=== PATIENT | female | born 1995 | race Asian ===

== ENCOUNTER 2018-06-14 02:51 | Emergency (ER) | payer SELFPAY ==
[~2018-06-14] VITALS: Ht 162.6 cm; Wt 59.0 kg
[2018-06-14 03:05] VITALS: Ht 162.6 cm; Wt 59.0 kg
[2018-06-14 03:25] LABS: BASOPHIL % 1.9 % (0-2); PLATELET COUNT 287 x10^3mcL (130-400); RED CELL DISTRIBUTION WIDTH 13.4 % (11.5-14.5)
[2018-06-14 03:42] LABS: CALCIUM 8.9 mg/dL (8.5-10.1); CARBON DIOXIDE 26.4 mmol/L (21-32); CHLORIDE SERUM 99 mmol/L (98-107); CREATININE SERUM 0.6 mg/dL (0.6-1.0); GFR1 > 60 mL/min; GLUCOSE SERUM 106 mg/dL (74-106); POTASSIUM SERUM 3.3 mmol/L (3.5-5.1); SODIUM SERUM 138 mmol/L (136-145)
[2018-06-14 03:47] LABS: ALKALINE PHOSPHATASE 69 U/L (46-116); ALT/SGPT 25 U/L (14-59); AST/SGOT 24 U/L (15-37); BILIRUBIN TOTAL 0.2 mg/dL (0.20-1.00); TOTAL PROTEIN, SERUM 7.9 g/dL (6.4-8.2)
[2018-06-14 04:07] LABS: AMPHETAMINE QUAL UR NONE DETECTED (See below)
[2018-06-14 07:58] VITALS: BP 130/69
== END 2018-06-14 07:58 | disposition home or self-care (01) ==
LOC: ED 02:51
PROVIDERS: Emergency Medicine
DX: Z00.8 Encounter for other general examination (principal); W17.89XA Other fall from one level to another, initial encounter; Y93.89 Activity, other specified; Y92.89 Other specified places as the place of occurrence of the external cause; Y99.8 Other external cause status
CPT/HCPCS: 36415; G0480

== ENCOUNTER 2020-03-16 01:48 | Emergency (ER) | payer OTHER ==
[~2020-03-16] VITALS: Ht 162.6 cm; Wt 62.7 kg
[2020-03-16 01:57] VITALS: Ht 162.6 cm; Wt 62.7 kg
[2020-03-16 04:21] VITALS: BP 111/79
== END 2020-03-16 04:21 | disposition home or self-care (01) ==
LOC: ED 01:48
DX: S93.602A Unspecified sprain of left foot, initial encounter (principal); S80.812A Abrasion, left lower leg, initial encounter; S80.811A Abrasion, right lower leg, initial encounter; S60.512A Abrasion of left hand, initial encounter; S60.511A Abrasion of right hand, initial encounter; S09.8XXA Other specified injuries of head, initial encounter; W10.9XXA Fall (on) (from) unspecified stairs and steps, initial encounter; Y93.89 Activity, other specified; Y92.89 Other specified places as the place of occurrence of the external cause; Y99.8 Other external cause status
CPT/HCPCS: Q0092